=== PATIENT | male | born 1950 | race Caucasian/White ===

== ENCOUNTER → 2019-01-11 13:45 | Outpatient (CLI) | payer MEDICARE, SELFPAY ==
--- NOTE | 2019-01-11 | IMM_PTH ---
PATIENT: KEYUR SHI LOC: [facility] U#:[id number] AGE/SX: 75/M ROOM: RE01/11/[address]: Dr. Alexi Durán MD : 1950 BED: DIS: SPEC #: [id number] RECD: 01/15/19 12:27 STATUS: MARK BAUDILIO #: [id number] ALONDRA: 01/11/19 00:[address]: Alexi Durán DEPT: IMMUNOHISTOCHEMISTRY RECD BY: Deidre Thomas Tissues: A - PROSTATE RIGHT D - PROSTATE LEFT E - PROSTATE LEFT F - PROSTATE LEFT Procedures: 34BE12 (add) P40 (add) 34BE12 (initial) PHYSICIAN & INSTITUTION [place] [id number] SPECIMEN INFORMATION: Tissue Source: A - Right apex, D - Left apex, E - Left mid, F - Left base Clinical Info: Elevated PSA Specimen Number: [id number] A, D, E, F CPT code: 58411, 24697 x7 METHODOLOGY: Deparaffinized sections of prefer/formalin-fixed tissue or PAP/DQ stained slides are incubated with monoclonal/polyclonal antibodies/oligonucleotide probes. Localization is made via biotin free immunoperoxidase method. Appropriate controls are performed and reacted as expected. Results on target cell population are indicated in the following table: RESULTS: ANTIBODY / CLONE RESULT Block A P40 (BC28) negative 34BE12 (34BE12) negative Block D P40 (BC28) positive 34BE12 (34BE12) positive Block E P40 (BC28) negative 34BE12 (34BE12) negative Block F P40 (BC28) negative 34BE12 (34BE12) negative These tests were developed and their performance characteristics determined by [facility]. They may not have been cleared or approved by the U.S. Food and Drug Administration. The FDA has determined that such clearance or approval is not necessary. INTERPRETATION: A. Right prostate, apex, core biopsy: Adenocarcinoma. D. Left prostate, apex, core biopsy: Consistent with focal high-grade prostatic intraepithelial neoplasia (HGPIN). E. Left prostate, mid, core biopsy: Adenocarcinoma. F. Left prostate, base, core biopsy: Adenocarcinoma. SJ:tyrone 01/16/19 Case has been reviewed in consultation with Dr. Pedro who concurs with the above diagnosis. IDC:AM
--- NOTE | 2019-01-11 13:45 | PROSBIL_PTH ---
PATIENT: KEYUR SHI LOC: [facility] U#:[id number] AGE/SX: 75/M ROOM: RE01/11/[address]: Dr. Alexi Durán MD : 1950 BED: DIS: SPEC #: [id number] RECD: 01/11/19 17:15 STATUS: MARK BAUDILIO #: [id number] ALONDRA: 01/11/19 13:[address]: Alexi Durán DEPT: SURGICAL PATHOLOGY RECD BY: Wenceslao Tello Tissues: A - PROSTATE RIGHT B - PROSTATE RIGHT C - PROSTATE RIGHT D - PROSTATE LEFT E - PROSTATE LEFT F - PROSTATE LEFT Procedures: PROSTATE BX HEADER OPERATION: Prostate biopsy PRE-OP DIAGNOSIS: Elevated PSA TISSUE SUBMITTED: A - Right apex, B - Right mid, C - Right base, D - Left apex, E - Left mid, F - Left base MICROSCOPIC DIAGNOSIS A. Right prostate, apex, core biopsy: Prostatic adenocarcinoma: [place] grade: 3+4=7 Number of cores involved: 2 out of 2 Proportion of tissue involved: 15-20% Perineural invasion: Not identified. Greatest tumor length: 1.2 cm, discontinuous. Focal high-grade prostatic intraepithelial neoplasia (HGPIN). See comment. B. Right prostate, mid, core biopsy: Prostatic adenocarcinoma: José Miguel grade: 4+4=8 Number of cores involved: 2 out of 2 Proportion of tissue involved: 15-20% Perineural invasion: Not identified. Greatest tumor length: 0.5 cm, discontinuous Focal high-grade prostatic intraepithelial neoplasia (HGPIN). C. Right prostate, base, core biopsy: Prostatic adenocarcinoma: [place] grade: 5+4=9 Number of cores involved: 2 out of 2 Proportion of tissue involved: 80% Perineural invasion: Present. Greatest tumor length: 0.8 cm D. Left prostate, apex, core biopsy: Focal high-grade prostatic intraepithelial neoplasia (HGPIN). See comment. E. Left prostate, mid, core biopsy: Prostatic adenocarcinoma: [place] grade: 3+4=7 Number of cores involved: 1 out of 2 Proportion of tissue involved: <5% Perineural invasion: Not identified. Greatest tumor length: <0.1 cm Focal high-grade prostatic intraepithelial neoplasia (HGPIN). See comment. F. Left prostate, base, core biopsy: Prostatic adenocarcinoma: [place] grade: 3+3=6 Number of cores involved: 1 out of 2 Proportion of tissue involved: <5% Perineural invasion: Not identified. Greatest tumor length: 0.1 cm. See comment. SJ:tyrone 01/15/19 COMMENT A, D, E & F - Immunohistochemistry ([id number]) supports the above diagnosis. Case has been reviewed in consultation with Dr. Pedro who concurs with the above diagnosis. IDC:AM MICROSCOPIC DESCRIPTION Slides are reviewed. GROSS DESCRIPTION A - Received is one container designated prostate, right apex. The specimen consists of two elongated fragments of light gibbons-white soft tissue each measuring 1 cm in length and 0.1 cm in diameter. The specimen is totally submitted in one cassette. B - Received is one container designated prostate, right mid. The specimen consists of two elongated fragments of light gibbons-white soft tissue each measuring 1 cm in length and 0.1 cm in diameter. The specimen is totally submitted in one cassette. C - Received is one container designated prostate, right base. The specimen consists of two elongated fragments of light gibbons-white soft tissue each measuring 1 cm in length and 0.1 cm in diameter. The specimen is totally submitted in one cassette. D - Received is one container designated prostate, left apex. The specimen consists of two elongated fragments of light gibbons-white soft tissue each measuring 0.8 cm in length and 0.1 cm in diameter. The specimen is totally submitted in one cassette. E - Received is one container designated prostate, left mid. The specimen consists of two elongated fragments of light gibbons-white soft tissue each measuring 1 cm in length and 0.1 cm in diameter. The specimen is totally submitted in one cassette. F - Received is one container designated prostate, left base. The specimen consists of two elongated fragments of light gibbons-white soft tissue each measuring 1 cm in length and 0.1 cm in diameter. The specimen is totally submitted in one cassette. / AM:rg 01/12/19 TC:0 [facility]: [id number]
== END ==
PROVIDERS: Referring Provider Urology; Visit Provider Urology
DX: R97.20 Elevated prostate specific antigen [PSA] (principal)
CPT/HCPCS: 88305; 88341; 88342; G0416

== ENCOUNTER → 2019-01-23 07:12 | Outpatient (CLI) | payer MEDICARE, SELFPAY ==
--- NOTE | 2019-01-23 07:16 | CT_ITS ---
STUDY: CT ABDOMEN AND PELVIS WITH CONTRAST REASON FOR EXAM: Male, 68 years old. New diagnosis of prostate carcinoma. RADIATION DOSAGE (If Supplied By Facility): CTDIvol = ( 14.76 ) mGy, DLP = ( 592.10 ) mGycm TECHNIQUE: Transaxial images were obtained from the dome of the diaphragm to the symphysis pubis without oral contrast. 100 IV Isovue 300 was administered. Sagittal and coronal images were reconstructed. Individualized dose optimization techniques were used for this CT. COMPARISON: None. FINDINGS: The visualized lung bases are unremarkable. The visualized portions of the heart are within normal limits. Normal liver. Normal gallbladder and extrahepatic biliary system. Normal spleen. Normal pancreas. Normal bilateral adrenal glands. There is a 3 mm nonobstructive calculus in the mid lower portion of the right kidney. Normal left kidney. Normal visualized stomach. Normal small intestine. There are multiple colonic diverticula consistent with diverticulosis. The patient is status post appendectomy. Normal abdominal aorta. Normal inferior vena cava. There is borderline retroperitoneal lymphadenopathy with enlarged nodes no greater than 10mm in the short axis diameter. Normal urinary bladder. There is enlargement of the prostate gland. It measures 3.9 cm by 4.7 cm. This causes indentation of the bladder base. Calcifications are seen within the prostate. Small bilateral inguinal hernias containing fat. Grade 1 anterior listhesis of L5 on S1 with spondylolysis of the pars interarticularis of the L5 vertebrae. There is also evidence of a 1.2 cm rounded sclerotic lesion in the posterior right side of the L3 vertebrae. A tiny sclerotic focus also seen along the posterior aspect of the L1 vertebrae on the right side. CT/Abdomen/Pelvis WITH Contrast IMPRESSION: Prostatic enlargement and calcification with indentation on the bladder base. 3 mm nonobstructive contrast in the mid lower portion of the right kidney. 1.26 on the sclerotic focus in the posterior right side of the L5 vertebrae as well as in the L1 vertebrae. Electronically Signed: Sebastián Martinez, at 14:44 EDT , Service support ,
[2019-01-23 07:25] LABS: CREATININE FINGERSTICK 0.8 mg/dL (0.70-1.30); EGFR FINGERSTICK > 60.0000 mL/min (>60)
== END ==
PROVIDERS: Family Provider Family Medicine; PCP Family Medicine; Referring Provider Urology; Visit Provider Urology
DX: C61 Malignant neoplasm of prostate (principal)
CPT/HCPCS: 74177; Q9967

== ENCOUNTER → 2019-01-26 08:47 | Outpatient (CLI) | payer MEDICARE, SELFPAY ==
--- NOTE | 2019-01-26 08:48 | NM_ITS ---
CLINICAL: 68-year-old male with reported history of carcinoma of the prostate. WHOLE BODY 99m Tc MDP RADIONUCLIDE BONE SCINTIGRAPHY COMPARISON: CT of the abdomen-pelvis report 01/23/2019 FINDINGS: Following the intravenous administration of 24.6 mCi of 99m Tc MDP, whole body bone images reveal: 1. Increased radiopharmaceutical concentration is identified in the mid cervical spine posteriorly on the left-right, the bilateral elbow and wrist articulations, the right hand, both knees, posterior midline sacrum, acromioclavicular compartments of both shoulders, sternoclavicular compartment of the right shoulder. 2. The remaining skeletal structures are scintigraphically unremarkable with normal-appearing renal images and urinary bladder activity identified. NM/Bone Scan Whole Body IMPRESSION: 1. The increased radiopharmaceutical concentration defined in the cervical spine, bilateral shoulder and elbow articulations, both wrists, the right hand, knees bilaterally and posterior midline sacrum is commensurate with degenerative arthritis. 2. There is no definitive typical scintigraphic evidence of diffuse axial skeletal metastatic disease on the current examination. Electronically Signed: Pedro Hurtado DO at 8:04 EDT Tel , Service support ,
== END ==
PROVIDERS: Family Provider Family Medicine; PCP Family Medicine; Referring Provider Urology; Visit Provider Urology
DX: C61 Malignant neoplasm of prostate (principal)
CPT/HCPCS: 78306

== ENCOUNTER 2019-02-14 12:15 | Day surgery (SDC) | payer MEDICARE, SELFPAY ==
[2019-02-14] VITALS (7 sets, daily range): BP systolic 100–129; BP diastolic 62–79; PULSE 56–70; RESP 16–18; TEMP 36.3–36.7; O2SAT 96–99; BMI 23.9
[2019-02-14] MEDS: Cefazolin 2 GM in 0.9% Normal Saline 100 ML IV (14:27)
--- NOTE | 2019-02-14 14:46 | DCINST_ITS ---
Discharge Diet: Light diet - advance as tolerated Discharge Activity: Return to Normal Activity Allergies/Adverse Reactions: Allergies atorvastatin [From Lipitor] Adverse Reaction (Verified 02/14/19 12:35) muscle aches Medications to take at Discharge Azelaic Acid [Finacea] 50 gm TP PRN PRN 02/09/19 Bicalutamide [Casodex] 50 mg PO DAILY 02/09/19 Leuprolide Acetate [Lupron Depot] 3.75 mg IM UD 02/09/19 Propranolol HCl [Inderal (Beta Allen)] 20 mg PO PRN PRN 02/09/19 Rosuvastatin Calcium [Crestor] 5 mg PO MOWEFR 02/09/19 Primary Care Physician: Suhail Carney MD [Primary Care Provider] - Test Results: Test results from this visit will be discussed in further detail at your follow- up appointment, if applicable. Please Follow Up With: Alexi Durán MD When: please call to make an appointment.
--- NOTE | 2019-02-14 14:47 | PCM.OPRPT ---
Report of Operation Date of Procedure: 02/14/19 Pre-Operative Diagnosis: Prostate cancer Post-Operative Diagnosis: Same Surgery/Procedure Performed:: Transrectal ultrasonography of the prostate, placement of gold fiducial markers for radiation planning, placement of a spacer organ at risk gel matrix. Description of Surgical Findings:: 68-year-old male recently diagnosed with prostate cancer is elected to undergo radiation treatment for his prostate cancer today working in place 3 gold markers into the prostate to ginna the prostate for treatment planning and then were also in the place spacer gel between the rectum and the prostate. Patient was taken back to the operating room and smooth induction of anesthesia he is placed in dorsal time position he underwent MAC local, the perineum was shaved prepped and draped in usual sterile fashion draped the patient we then placed ultrasound probe into the rectum performed ultrasonography of the prostate identified the seminal vesicles the apex of the prostate the base the mid lateral borders of the prostate was also identified. After ultrasonography was performed I then placed the first lumber marker the patient's left lobe of the prostate and the second: Of the left lobe of the prostate and the final cord marker at the base of the prostate after the 3 gold markers were placed in 3 different spatial orientations we then prepared the gel matrix solution for injection in the back table following the heel layer's instructions. Then after this using the bevie once the gel matrix was injected between the rectum and the prostate shape down we followed the needle into the space between the rectum a gentle puff of injectable saline was placed to check the location and the location was appropriate right between the rectum and the prostate once the needle was placed accordingly we then injected the gel matrix into the space this created a nice separation between the rectum and the prostate after the injection of the gel. Patient anesthetic was reversed he was taken back to PACU good condition he will get is good to continue with treatment for radiation therapy and he will be back in the office for another hormone shot in 3 months. Type of Anesthesia:: General - Admit VTE Documentation VTE Present on Admission: No
--- NOTE | 2019-02-14 14:51 | OP.PCM_ITS ---
Report of Operation Date of Procedure: 02/14/19 Pre-Operative Diagnosis: Prostate cancer Post-Operative Diagnosis: Same Surgery/Procedure Performed:: Transrectal ultrasonography of the prostate, placement of gold fiducial markers for radiation planning, placement of a spacer organ at risk gel matrix. Description of Surgical Findings:: 68-year-old male recently diagnosed with prostate cancer is elected to undergo radiation treatment for his prostate cancer today working in place 3 gold markers into the prostate to ginna the prostate for treatment planning and then were also in the place spacer gel between the rectum and the prostate. Patient was taken back to the operating room and smooth induction of anesthesia he is placed in dorsal time position he underwent MAC local, the perineum was shaved prepped and draped in usual sterile fashion draped the patient we then placed ultrasound probe into the rectum performed ultrasonography of the prostate identified the seminal vesicles the apex of the prostate the base the mid lateral borders of the prostate was also identified. After ultrasonography was performed I then placed the first can marker the patient's left lobe of the prostate and the second: Of the left lobe of the prostate and the final cord marker at the base of the prostate after the 3 gold markers were placed in 3 different spatial orientations we then prepared the gel matrix solution for injection in the back table following the data analytics specialist's instructions. Then after this using the bevie once the gel matrix was injected between the rectum and the prostate shape down we followed the needle into the space between the rectum a gentle puff of injectable saline was placed to check the location and the location was appropriate right between the rectum and the prostate once the needle was placed accordingly we then injected the gel matrix into the space this created a nice separation between the rectum and the prostate after the injection of the gel. Patient anesthetic was reversed he was taken back to PACU good condition he will get is good to continue with treatment for radiation therapy and he will be back in the office for another hormone shot in 3 months. Type of Anesthesia:: General - Admit VTE Documentation VTE Present on Admission: No
== END 2019-02-14 15:50 | disposition home or self-care (01) ==
LOC: SDC 12:21 → AC 12:22
PROVIDERS: Family Provider Family Medicine; PCP Family Medicine; Referring Provider Urology; Visit Provider Urology
PROC: (CPT 55874; principal; 2019-02-14 13:45)
DX: C61 Malignant neoplasm of prostate (principal); N40.1 Benign prostatic hyperplasia with lower urinary tract symptoms; R35.0 Frequency of micturition; R33.8 Other retention of urine; E78.49 Other hyperlipidemia; Z79.899 Other long term (current) drug therapy
CPT/HCPCS: 00902; 55876; 76942; J7120; J2405

== ENCOUNTER → 2019-02-28 10:36 | Outpatient (CLI) | payer MEDICARE, SELFPAY ==
[2019-02-14 12:37] VITALS: BMI 23.9
[2019-02-27 11:49] LABS: Absolute Lymphocyte Count 1.64 X10^3/ul (0.83-4.51); Absolute Neutrophil Count 3.1 X10^3/uL (2.0-7.7); Basophil# 0.01 X10^3/uL; Basophil% 0.2 % (0-1); Eosinophil# 0.07 X10^3/uL; Eosinophils% 1.3 % (0-5); Hematocrit 45.1 % (40-54); Hemoglobin 15.2 g/dl (13.0-16.5); Lymphocyte # 1.64 X10^3/ul (4.0); Lymphocyte % 31.1 % (19-41); Mean Corp Hgb Conc 33.7 g/gl (32-36); Mean Corpuscular Hgb 31.3 pg (27.0-32.0); Mean Corpuscular Volume 92.8 fL (80-94); Mean Platelet Vol. 10.4 fl (6.2-12.0); Monocyte% 7.6 % (0-10); Neutrophil # 3.14 X10^3/uL (2.7-7.7); Neutrophil % 59.4 % (47-70); Platelet Count 200 K/mm3 (150-450); RBC Distribution Width CV 13.4 % (11.6-14.6); RBC Distribution Width SD 45.6 fl (35.1-43.9); Red Blood Count 4.86 M/mm3 (4.6-6.2); White Blood Count 5.3 K/mm3 (4.4-11.0)
[2019-02-27 11:50] LABS: POSITIVE COUNT NO; POSITIVE DIFFERENTIAL NO; POSITIVE MORPHOLOGY NO
[2019-02-27 12:13] LABS: Creatinine, Serum 0.97 mg/dL (0.70-1.30); EST Glomerular Filtration Rate 82 mL/min (>60); Est Glom Filt Rate - Afr Amer 99 mL/min (>60); PSA,Total- Diagnostic 9.82 ng/mL (0.0-4.0)
--- NOTE | 2019-02-28 10:37 | CT_ITS ---
STUDY: CT PELVIS WITH CONTRAST REASON FOR EXAM: Male, 68 years old. Planning for radiation therapy, prostate cancer RADIATION DOSAGE (If Supplied By Facility): CTDIvol = ( 23.48 ) mGy, DLP = ( 775.71 ) mGycm TECHNIQUE: Transaxial imaging of the pelvis was performed with oral contrast. 100 IV/Oral Isovue 300 was administered intravenously. Individualized dose optimization techniques were used for this CT. COMPARISON: 01/23/2019 FINDINGS: There is contrast in the urinary bladder (Retrograde?). Normal visualized small intestine. Normal visualized colon. There is no pelvic fluid. There is no pelvic lymphadenopathy or mass lesion. There is enlargement of the prostate gland with mass effect on the inferior urinary bladder.. Metallic implants of the prostate gland are identified. There is mild amount of fluid posterior to the prostate (anterior to the rectum) on images 66-74. This is new since 01/23/2019 Normal visualized pelvic arteries. Bilateral fat-containing inguinal hernias are demonstrated. Bilateral L5 spondylolysis with L5-S1 spondylolisthesis identified. There are degenerative changes of the lumbar spine. No lytic or sclerotic bone lesions are seen. There are sclerotic lesions of the right parasymphyseal pubis on axial image 71-72 measuring up to 5 mm, stable since prior CT. CT/CT Pelvis W/CONT Therapy IMPRESSION: 1. Prostatomegaly. Mild posterior periprosthetic fluid (new). No pelvic sidewall adenopathy/mass. 2. Small (5 mm) right parasymphyseal pubis sclerotic lesions, stable since prior abdomen/pelvis CT of 01/23/2019. Electronically Signed: Blayne Smith MD at 13:54 EDT , Service support ,
== END ==
PROVIDERS: Family Provider Family Medicine; PCP Family Medicine; Referring Provider Radiology Radiation Oncology; Visit Provider Radiology Radiation Oncology
DX: C61 Malignant neoplasm of prostate (principal)
CPT/HCPCS: 36415; 51600; 72193; 82565; 84153; 85025; Q9967

== ENCOUNTER → 2019-03-29 10:02 | Outpatient (CLI) | payer MEDICARE, SELFPAY ==
[2019-02-14 12:37] VITALS: BMI 23.9
[2019-03-29 10:35] LABS: Absolute Lymphocyte Count 0.85 X10^3/ul (0.83-4.51); Absolute Neutrophil Count 2.5 X10^3/uL (2.0-7.7); Basophil# 0.01 X10^3/uL; Basophil% 0.3 % (0-1); Eosinophil# 0.08 X10^3/uL; Eosinophils% 2.1 % (0-5); Hematocrit 40.5 % (40-54); Hemoglobin 13.9 g/dl (13.0-16.5); Lymphocyte # 0.85 X10^3/ul (4.0); Lymphocyte % 22.3 % (19-41); Mean Corp Hgb Conc 34.3 g/gl (32-36); Mean Corpuscular Volume 90.2 fL (80-94); Mean Platelet Vol. 9.7 fl (6.2-12.0); Monocyte# 0.37 X10^3/uL; Monocyte% 9.7 % (0-10); Neutrophil # 2.46 X10^3/uL (2.7-7.7); Neutrophil % 64.6 % (47-70); Platelet Count 154 K/mm3 (150-450); RBC Distribution Width CV 12.9 % (11.6-14.6); RBC Distribution Width SD 41.4 fl (35.1-43.9); Red Blood Count 4.49 M/mm3 (4.6-6.2); White Blood Count 3.8 K/mm3 (4.4-11.0)
[2019-03-29 10:36] LABS: POSITIVE COUNT NO; POSITIVE DIFFERENTIAL NO; POSITIVE MORPHOLOGY NO
== END ==
PROVIDERS: Family Provider Family Medicine; PCP Family Medicine; Referring Provider Radiology Radiation Oncology; Visit Provider Radiology Radiation Oncology
DX: Z85.46 Personal history of malignant neoplasm of prostate (principal)
CPT/HCPCS: 36415; 85025

== ENCOUNTER → 2019-04-23 10:31 | Outpatient (CLI) | payer MEDICARE, SELFPAY ==
[2019-02-14 12:37] VITALS: BMI 23.9
[2019-04-23 11:19] LABS: Absolute Lymphocyte Count 0.66 X10^3/ul (0.83-4.51); Absolute Neutrophil Count 2.7 X10^3/uL (2.0-7.7); Eosinophils% 2.5 % (0-5); Hematocrit 36.1 % (40-54); Hemoglobin 12.4 g/dl (13.0-16.5); Lymphocyte # 0.66 X10^3/ul (4.0); Lymphocyte % 16.2 % (19-41); Mean Corp Hgb Conc 34.3 g/gl (32-36); Mean Corpuscular Hgb 31.6 pg (27.0-32.0); Mean Corpuscular Volume 92.1 fL (80-94); Mean Platelet Vol. 9.3 fl (6.2-12.0); Monocyte# 0.57 X10^3/uL; Neutrophil % 66.3 % (47-70); Platelet Count 159 K/mm3 (150-450); RBC Distribution Width CV 14.5 % (11.6-14.6); RBC Distribution Width SD 47.4 fl (35.1-43.9); Red Blood Count 3.92 M/mm3 (4.6-6.2); White Blood Count 4.1 K/mm3 (4.4-11.0)
[2019-04-23 11:27] LABS: POSITIVE COUNT NO; POSITIVE DIFFERENTIAL NO; POSITIVE MORPHOLOGY NO
== END ==
PROVIDERS: Family Provider Family Medicine; PCP Family Medicine; Referring Provider Radiology Radiation Oncology; Visit Provider Radiology Radiation Oncology
DX: C61 Malignant neoplasm of prostate (principal)
CPT/HCPCS: 36415; 85025